=== PATIENT | female | born 1970 ===

== ENCOUNTER 2017-01-27 01:24 | Emergency (ER) | payer BC ==
[2017-01-27 02:06] VITALS: PULSE 73; RESP 18
[2017-01-27 02:16] LABS: RBC URINE 2 /hpf (0-3); URINE BILIRUBIN NEGATIVE (NEGATIVE); URINE BLOOD 1+ (NEGATIVE); URINE COLOR Yellow (YELLOW); URINE GLUCOSE (UA) NORMAL (Normal); URINE KETONE NEGATIVE (NEGATIVE); URINE LEUKOCYTE ESTERASE NEG Leu/uL (Negative); URINE PROTEIN NEGATIVE (NEGATIVE); URINE UROBILINOGEN NORMAL mg/dL (0.2-1.0); WBC URINE 1 /hpf (0-5)
--- NOTE | 2017-01-27 02:41 | C.PDOC ---
History Of Present Illness 46 yo female come in for evaluation of Left buttock burning, pruritic rash gradually developed for past 4-5 days. Pt sts, for past 2 days noted some discomfort on urination, mild pain. Otherwise, pt denies fever, chills, abd. pain, N/V/D, hematuria, vaginal irritation or discharge, back pain. Ambulate to Ed for evaluation, not in any apparent distress. Time Seen by Provider: 01/27/17 02:07 Chief Complaint (Nursing): Female Genitourinary History Per: Patient Onset/Duration Of Symptoms: Gradual Current Symptoms Are (Timing): Still Present Past Medical History Reviewed: Historical Data, Nursing Documentation, Vital Signs Vital Signs: Last Vital Signs Temp 98.0 F 01/27/17 01:50 Pulse 73 01/27/17 01:50 Resp 18 01/27/17 01:50 BP 163/94 H 01/27/17 01:50 Pulse Ox 96 01/27/17 01:50 - Medical History PMH: No Chronic Diseases Other Surgeries: not contributory Family History: States: No Known Family Hx - Social History Hx Alcohol Use: No Hx Substance Use: No - Immunization History Hx Tetanus Toxoid Vaccination: No Hx Influenza Vaccination: No Hx Pneumococcal Vaccination: No Review Of Systems Except As Marked, All Systems Reviewed And Found Negative. Constitutional: Negative for: Fever, Chills ENT: Negative for: Throat Pain Gastrointestinal: Negative for: Nausea, Vomiting, Abdominal Pain Genitourinary: Positive for: Dysuria. Negative for: Frequency, Incontinence, Vaginal Discharge, Vaginal Bleeding Musculoskeletal: Negative for: Neck Pain, Back Pain Skin: Positive for: Rash Neurological: Negative for: Weakness, Numbness, Altered Mental Status, Dizziness Physical Exam - Physical Exam Appears: Well, Non-toxic, No Acute Distress Skin: Warm, Rash (vesicular rash in cluster on erythematous base over Left gluteus (Left S1 dermatome). No flactulance, no cellulitis or proximal streaking.) Gastrointestinal/Abdominal: Soft, No Distention, No Guarding Back: No CVA Tenderness Pelvic: Normal External Exam, Normal Speculum Exam, No Vaginal Bleeding, No Vaginal Discharge, No Cervical Motion Tenderness Extremity: No Pedal Edema, No Deformity Neurological/Psych: Oriented x3, Normal Speech ED Course And Treatment O2 Sat by Pulse Oximetry: 96 Pulse Ox Interpretation: Normal Progress Note: On re-evaluation, pt is afebrile, hemodynamicaly stable. NOn- toxic. AMbulatory in ED with stable gait. Tolerate Po well in ED. ENT: exam c/ w paranasal sinusitis. Abd: benign. Skin: exam c/w herpes Zoster to Left gluteus, along [id number]. No evidence of superimposed infecton, no cellulitis , no flactulance. Pt advised on course of ds and ref. to F/u with PMD In 2-3 days for re-eval. return if any worsening or new changes. Disposition Counseled Patient/Family Regarding: Studies Performed, Diagnosis, Need For Followup, Rx Given - Disposition Referrals: [facility] [Outside] [facility] [Outside] Disposition: HOME/ ROUTINE Disposition Time: 02:43 Condition: STABLE Additional Instructions: Take medication as prescribed Follow up with PMD in 2-3 days for re-evaluation. Return to ED if nay worsening or new changes. Prescriptions: Bacitracin OINT 1 applic TP BID #1 tube traMADol [Ultram] 50 mg PO TID #10 tab valACYclovir [Valtrex] 1,000 mg PO TID #21 tab Instructions: Shingles (ED) - Clinical Impression Clinical Impression: Shingles
[2017-01-27 03:29] VITALS: BP 150/98; TEMP 97.7; O2SAT 98
== END 2017-01-27 03:29 | disposition home or self-care (01) ==
LOC: C.ER 01:24
DX: B02.9 Zoster without complications (principal)

== ENCOUNTER 2019-02-02 03:37 | Emergency (ER) | payer BC ==
[2019-02-02 03:53] VITALS: RESP 20; TEMP 98.2
[2019-02-02] MEDS ORDERED: Tetanus/Diphtheria Toxoids 0.5 ml Syringe IM ONE ×2 (04:21→04:25)
--- NOTE | 2019-02-02 04:29 | C.PDOC ---
History Of Present Illness 48 year old female presents to the ED for evaluation of mouse bite to her left index finger one hour [employer]. Patient denies fever, chills, rash, weakness, numbness. Time Seen by Provider: 02/02/19 03:48 Chief Complaint (Nursing): Abnormal Skin Integrity History Per: Patient History/Exam Limitations: no limitations Onset/Duration Of Symptoms: Hrs (1) Current Symptoms Are (Timing): Still Present Location Of Injury: Left: Hand Recent travel outside of the [place]: No Additional History Per: Patient Past Medical History Reviewed: Historical Data, Nursing Documentation, Vital Signs Vital Signs: Last Vital Signs Temp 98.2 F 02/02/19 03:45 Pulse 88 02/02/19 03:45 Resp 20 02/02/19 03:45 BP 128/72 02/02/19 03:45 Pulse Ox 99 02/02/19 03:45 - Medical History PMH: No Chronic Diseases Surgical History: No Surg Hx Family History: States: Unknown Family Hx - Social History Hx Alcohol Use: No Hx Substance Use: No - Immunization History Hx Tetanus Toxoid Vaccination: No Hx Influenza Vaccination: No Hx Pneumococcal Vaccination: No Review Of Systems Constitutional: Negative for: Fever, Chills Respiratory: Negative for: Cough, Shortness of Breath Gastrointestinal: Negative for: Nausea, Vomiting, Abdominal Pain Musculoskeletal: Positive for: Hand Pain Skin: Negative for: Rash Neurological: Negative for: Weakness, Numbness, Headache, Dizziness Physical Exam - Physical Exam Appears: Non-toxic, No Acute Distress Skin: Normal Color, Warm, Dry Head: Atraumatic, Normacephalic Eye(s): bilateral: Normal Inspection Neck: Normal ROM, Supple Extremity: Normal ROM, No Tenderness, Capillary Refill (< 2 seconds), No Swelling, No Other (open or puncture wounds visualized) Extremity: Bilateral: Normal Color And Temperature Pulses: Left Radial: Normal, Right Radial: Normal Neurological/Psych: Oriented x3, Normal Speech, Normal Cognition Gait: Steady ED Course And Treatment O2 Sat by Pulse Oximetry: 99 (ON RA) Pulse Ox Interpretation: Normal Progress Note: Plan: - tetanus immunization. Patient is resting comfortably, and is in no acute distress. Patient was instructed to follow up with PMD in 1- 2 days for further evaluation. Disposition Counseled Patient/Family Regarding: Diagnosis, Need For Followup, Rx Given - Disposition Disposition: HOME/ ROUTINE Disposition Time: :29 Condition: GOOD Additional Instructions: Please follow up with PMD Apply antibacterial ointment to area Return to ER if swelling, redness, or worse Forms: [facility] (Wallisian), Gen Discharge Inst Lao - Clinical Impression Clinical Impression: Bitten by mouse, initial encounter - PA / [employer] / Resident Statement MD/DO has reviewed & agrees with the documentation as recorded. - Scribe Statement The provider has reviewed the documentation as recorded by the Scribe Junior Núñez All medical record entries made by the Sagaribjacki were at my direction and personally dictated by me. I have reviewed the chart and agree that the record accurately reflects my personal performance of the history, physical exam, medical decision making, and the department course for this patient. I have also personally directed, reviewed, and agree with the discharge instructions and disposition.
[2019-02-02 05:20] VITALS: BP 128/76; PULSE 82
[2019-02-03 03:00] VITALS: O2SAT 99
== END 2019-02-02 05:18 | disposition home or self-care (01) ==
LOC: C.ER 03:37
DX: S61.251A Open bite of left index finger without damage to nail, initial encounter (principal); W53.01XA Bitten by mouse, initial encounter